=== PATIENT | male | born 1990 | race Caucasian/White ===

== ENCOUNTER 2020-07-17 11:58 | Emergency (ER) | payer SELFPAY ==
[2020-07-17 12:05] VITALS: BP 166/71; PULSE 71; RESP 20; TEMP 36.7; O2SAT 100
--- NOTE | 2020-07-17 12:40 | ED.SKABFB ---
HPI - Skin/Abscess/Foreign Bdy General Chief complaint: Skin/Abscess/Foreign Body Stated complaint: rash Source: patient Mode of arrival: ambulatory Limitations: no limitations History of Present Illness HPI narrative: Patient is a 29-year-old male who presents with rash to bilateral hands, arms, ears and face. Patient reports allergy to poison clara and reports that he was cleaning up the yard and moving bushes the past week. He reports increased itching to hands and face. Patient reports he has been treated for same with prednisone in the past. He denies other complaints at this time. He denies significant medical history. MD complaint: rash Related Data Allergies Allergy/AdvReac Type Severity Reaction Status Date / Time codeine Allergy Unknown rash Verified 07/17/20 12:05 prednicarbate Allergy Unknown Skin Verified 07/17/20 12:05 Reaction POISON CLARA Allergy Unknown Rash Uncoded 07/17/20 12:05 Review of Systems Review of Systems: Narrative: CONSTITUTIONAL: Denies fever, chills, or sweats. EYES: Denies visual changes, redness, or discharge. ENT: Denies rhinorrhea, congestion, sore throat, or otalgia. CARDIOVASCULAR: Denies chest pain, palpitations, or edema. RESPIRATORY: Denies cough or dyspnea. GASTROINTESTINAL: Denies abdominal pain, nausea, vomiting, or diarrhea. GENITOURINARY: Denies dysuria or hematuria. SKIN: Reports rash to bilateral upper extremities, ears, face MUSCULOSKELETAL: Denies back pain, joint pain, or myalgia. NEUROLOGIC: Denies headache, numbness, dizziness, or weakness. PSYCHIATRIC: Denies anxiety or depression. [facility] Past Medical History Medical History Tonsillitis Surgical History Surgical History H/O right wrist surgery Hx of tonsillectomy Family History Family History (Updated 07/17/20 @ 12:43 by CHELSEA Mas) Other No significant family history Social History Social History (Updated 07/17/20 @ 12:44 by CHELSEA Mas) Smoking status: Current every day smoker Alcohol intake: current Alcohol use details: Occasional Substance use: never Occupation/Education: occupation Gender identity (if verbalized by the patient): Male Comments At the time of signature, I have reviewed and agree with nursing past medical, surgical, social, and family history unless otherwise noted. Please see nursing chart for further information. There is no relevant family history pertinent to the presenting complaint. Exam Narrative: Exam Narrative: GENERAL: Well-appearing, well-nourished, and in no acute distress. HEAD: Normocephalic, atraumatic. EYES: EOMI. No redness or drainage. ENT: Mucous membranes pink and moist. CHEST: No respiratory distress. HEART: Regular rate and rhythm. EXTREMITIES: Normal range of motion. No edema. SKIN: Pruritic,urticarial rash to bilateral hands, arms, bilateral ears and right cheek. NEURO: No focal deficits. Alert and oriented x3. Gait steady. PSYCH: Normal affect. No signs of depression or anxiety. Course Course Emergency Course: [facility] did not have original prescription available. Prescription recalled at this time of prednisone 50 mg taper pack. Vital Signs Vital signs: Vital Signs Temperature 36.7 C 07/17/20 12:05 Pulse Rate 71 07/17/20 12:05 Respiratory Rate 20 07/17/20 12:05 Blood Pressure 166/71 H 07/17/20 12:05 Pulse Oximetry 100 07/17/20 12:05 Temperature 36.7 C 07/17/20 12:05 Pulse Rate 71 07/17/20 12:05 Respiratory Rate 20 07/17/20 12:05 Blood Pressure 166/71 H 07/17/20 12:05 Pulse Oximetry 100 07/17/20 12:05 Reviewed. Patient has been instructed to follow-up with his PCP regarding his blood pressure. MDM - Skin/Abscess/Foreign Bdy MDM Narrative Medical decision making narrative: Patient most likely has contact dermatitis. Patient has a history of poison clara in
== END 2020-07-17 12:43 | disposition home or self-care (01) ==
PROVIDERS: Emergency Provider Nurse Practitioner; PCP Family Medicine
DX: L25.5 Unspecified contact dermatitis due to plants, except food (principal); F17.200 Nicotine dependence, unspecified, uncomplicated
CPT/HCPCS: 99213; G0463

== ENCOUNTER 2024-01-23 14:14 | Outpatient (CLI) | payer OTHER, SELFPAY ==
--- NOTE | ~2024-01-23 | MR_ITS ---
EXAMINATION: MR thoracic spine wo con DATE: 01/23/2024 15:01 INDICATION: Chronic midline thoracic back pain. TECHNIQUE: Magnetic resonance imaging (MRI) of the thoracic spine was performed without intravenous c ontrast. COMPARISON: None FINDINGS: There is 6 degrees levocurvature of upper thoracic spine. There are Schmorl's nodes at a fe w levels. There is mildly decreased disc height at T7-T8. At T5-T6, there is a left central protrusio n with mild central canal stenosis. At T8-T9, there is a right central extrusion with mild central ca nal stenosis. There is multilevel mild facet joint osteoarthritis. No neural foraminal stenosis. The spinal cord signal intensity is normal. IMPRESSION: 1. Mild thoracic spondylosis. Reviewed, dictated and finalized at location A.
== END 2024-01-23 14:15 | disposition home or self-care (01) ==
PROVIDERS: PCP Nurse Practitioner Family; Visit Provider Nurse Practitioner Family
DX: R20.0 Anesthesia of skin (principal); G89.29 Other chronic pain; R20.2 Paresthesia of skin; M47.894 Other spondylosis, thoracic region
CPT/HCPCS: 72146

== ENCOUNTER 2024-11-16 15:56 | Emergency (ER) | payer OTHER, SELFPAY ==
--- OUTSIDE RECORDS SUMMARY | 2024-11-16 15:58 | XMS_ITS | Continuity of Care Document ---
Author Name [facility] Organization [facility] Care Team Providers Care Parking Enforcement Officer Name Role Phone [facility] Unavailable Unavailable Problems Combined list of problems from Department of Defense and Veterans Affairs facilities. It does not include entries that were removed or entered in error. 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 DoD visit for: screening exam cardiovascular disorders Inactive Condition DoD Need For Vaccination MMR Inactive Condition DoD Need For Vaccination Hepatitis A And Hepatitis B Inactive Condition DoD visit for: services physical Active Condition DoD visit for: screening exam pulmonary tuberculosis Inactive Condition DoD Vaccines Prophylactic Need Against Influenza Inactive Condition DoD Vaccines Prophylactic Need Against Viral Diseases Inactive Condition DoD visit for: services physical accession Active Condition DoD visit: ears/hearing exam for hearing conservation, treatment Inactive Condition DoD Allergies, Adverse Reactions, Alerts Combined list of allergies from Department of Defense and Veterans Affairs facilities. It does not include entries that were removed or entered in error. Substance Category Reaction Severity Reaction type Status Date Reported Comments Source acetaminop hen-codein e Propensity to adverse reactions to drug Urticaria Active 6 Unknown Organizatio n TYLENOL-CO DEINE #3 (ACETAMINO PHEN WITH CODEINE) Drug allergy (disorder) Urticaria active 6 [place], [place] Immunizations Combined list of available immunizations from the Department of Defense and Veterans Affairs facilities. Immunization Series Date Given Administered By Site Reaction Lot Number CVX Code Drug Media Operator Status Comments Source influenza, injectable, quadrivalent- pf 2022 [id number] 150 Seqirus complet ed influenza , injectabl e, quadrival ent-pf 04/14/23 Given Ambulat ory Pharmac y yellow fever vaccine 2021 [id number] [facility] yellow fever vaccine 01/21/22 Given Ambulat ory Pharmac y typhoid Vi capsular polysaccharid e vac 2021 [id number] GlaxoSmithKl ne complet ed typhoid Vi capsular polysacch aride vac 01/21/22 Given Ambulat ory Pharmac y influenza virus vaccine, inactivated 2021 [id number] Seqirus complet ed influenza virus vaccine, inactivat ed 01/21/22 Given Ambulat ory Pharmac y COVID Vaccine Pfizer 2021 [id number] Unknown complet ed COVID Vaccine Pfizer 06/19/21 Given Ambulat ory Pharmac y COVID Vaccine Pfizer 2020 [id number] Unknown complet ed COVID Vaccine Pfizer 04/25/21 Given Ambulat ory Pharmac y influenza, injectable, quadrivalent- pf 2020 [id number] 150 Unknown complet ed influenza , injectabl e, quadrival ent-pf 03/19/21 Given Ambulat ory Pharmac y influenza, seasonal, injectable-pf 2015 [id number] 140 [facility] complet ed influenza , seasonal, injectabl e-pf 03/29/16 Given Ambulat ory Pharmac y Influenza, seasonal, injectable, preservative free 1 2015 [id number] 140 [facility] (SKB) complet ed Influenza , seasonal, injectabl e, preservat benjamin free DoD anthrax vaccine 2014 Magy [place] Arm [id number] 24 [employer] complet ed anthrax vaccine 08/18/14 Given Ambulat ory Pharmac y anthrax vaccine 3 2014 ESTUARDO HARRY [id number] 24 [employer] Sanju (MIP) complet ed anthrax vaccine DoD anthrax vaccine 2014 [id number] 24 [employer] complet ed anthrax vaccine 08/17/14 Given Ambulat ory Pharmac y anthrax vaccine 3 2014 [id number] 24 [employer] Sanju (MIP) complet ed anthrax vaccine DoD anthrax vaccine 2013 [id number] 24 [employer] complet ed anthrax vaccine 03/11/14 Given Ambulat ory Pharmac y anthrax vaccine 2 2013 [id number] 24 [employer] [facility] ([facility]) complet ed anthrax vaccine DoD influenza, seasonal, injectable-pf 2013 [id number] 140 CSL Behring complet ed influenza , seasonal, injectabl e-pf 01/29/14 Given Ambulat ory Pharmac y Influenza, seasonal, injectable, preservative free 1 2013 [id number] 140 [employer]st [employer] (CSL) complet ed Influenza , seasonal, injectabl e, preservat benjamin free DoD typhoid Vi capsular polysaccharid e vac 2013 [id number] 101 Lo[employer]. complet ed typhoid Vi capsular polysacch aride vac 01/09/14 Given Ambulat ory Pharmac y vaccinia (smallpox) vaccine 2013 [id number] [id number] 75 Sanofi Pasteur Incorporated complet ed vaccinia (smallpox ) vaccine 01/09/14 Given Ambulat ory Pharmac y pneumococcal polysaccharid e, 23 valent 2013 [id number] 33 Merck & Company Inc complet ed pneumococ hesham polysacch aride, 23 valent 01/09/14 Given Ambulat ory Pharmac y anthrax vaccine 2013 [id number] 24 [employer] complet ed anthrax vaccine 01/09/14 Given Ambulat ory Pharmac y anthrax vaccine 1 2013 [id number] 24 [facility] ([facility]) complet ed anthrax vaccine DoD pneumococcal polysaccharid e vaccine, 23 valent 1 2013 [id number] 33 Merck (MSD) complet ed pneumococ hesham polysacch aride vaccine, 23 valent DoD vaccinia (smallpox) vaccine 1 2013 VV04-00 [id number] 75 (DEBBY) complet ed vaccinia (smallpox ) vaccine DoD typhoid Vi capsular polysaccharid e vaccine 1 2013 [id number] 101 Ankur (AD) complet ed typhoid Vi capsular polysacch aride vaccine DoD hepatitis A-hepatitis B vaccine 2013 [id number] 104 Unknown complet ed hepatitis A-hepatit is B vaccine 09/18/13 Given Ambulat ory Pharmac y hepatitis A and hepatitis B vaccine 3 2013 [id number] 104 Unknown (UNK) complet ed hepatitis A and hepatitis B vaccine DoD hepatitis A-hepatitis B vaccine 2012 [id number] 104 GlaxoSmithKli ne complet ed hepatitis A-hepatit is B vaccine 03/27/13 Given Ambulat ory Pharmac y measles/mumps /rubella virus vaccine 2012 [id number] 03 Merck & Company Inc complet ed measles/m umps/rube lla virus vaccine 03/27/13 Given Ambulat ory Pharmac y measles, mumps and rubella virus vaccine 2 2012 [id number] 03 Merck (MSD) complet ed measles, mumps and rubella virus vaccine DoD hepatitis A and hepatitis B vaccine 2 2012 [id number] 104 SmithKline (SKB) complet ed hepatitis A and hepatitis B vaccine DoD hepatitis A-hepatitis B vaccine 2012 [id number] 104 GlaxoSmithKli ne complet ed hepatitis A-hepatit is B vaccine 02/18/13 Given Ambulat ory Pharmac y measles/mumps /rubella virus vaccine 2012 [id number] 03 Merck & Company Inc complet ed measles/m umps/rube lla virus vaccine 02/18/13 Given Ambulat ory Pharmac y measles, mumps and rubella virus vaccine 1 2012 [id number] 03 Merck (MSD) complet ed measles, mumps and rubella virus vaccine DoD varicella virus vaccine 1 2012 UNK 21 Unknown (UNK) Not Given varicella virus vaccine DoD hepatitis A and hepatitis B vaccine 1 2012 [id number] 104 [employer]Kline (SKB) complet ed hepatitis A and hepatitis B vaccine DoD influenza, live, intranasal,qu adrivalent 2012 [id number] 149 CSL Behring complet ed influenza , live, intranasa l,quadriv alent 02/14/13 Given Ambulat ory Pharmac y adenovirus vaccine, live 2012 [id number] 5 143 Teva Pharmaceutica ls complet ed adenoviru s vaccine, live 02/14/13 Given Ambulat ory Pharmac y Adenovirus, type 4 and type 7, live, oral 1 2012 [id number] 5 143 [facility] ([facility]) complet ed Adenoviru s, type 4 and type 7, live, oral DoD influenza, live, intranasal, quadrivalent 1 2012 [id number] 149 CSL [employer] (CSL) complet ed influenza , live, intranasa l, quadrival ent DoD tetanus, diphtheria, acellular pertu is 2012 [id number] 115 sanofi pasteur complet ed tetanus, diphtheri a, acellular pertussis 02/12/13 Given Ambulat ory Pharmac y tuberculin purified protein derivative 2012 [id number] 96 GlaxoSmithKli ne complet ed tuberculi n purified protein derivativ e 02/12/13 Given Ambulat ory Pharmac y meningococcal A,C,Y,W-135 (MCV4P) 2012 [id number] 114 GlaxoSmithKli ne complet ed meningoco ccal A,C,Y,W-1 35 (MCV4P) 02/12/13 Given Ambulat ory Pharmac y poliovirus vaccine, inactivated 2012 [id number] 10 sanofi pasteur complet ed polioviru s vaccine, inactivat ed 02/12/13 Given Ambulat ory Pharmac y poliovirus vaccine, inactivated 1 2012 [id number] 10 Sanofi Pasteur (PMC) complet ed polioviru s vaccine, inactivat ed DoD meningococcal polysaccharid e (groups A, C, Y and W-135) diphtheria toxoid conjugate vaccine (MCV4P) 1 2012 [id number] 114 [facility] (SKB) complet ed meningoco ccal polysacch aride (groups A, C, Y and W-135) diphtheri a toxoid conjugate vaccine (MCV4P) DoD tetanus toxoid, reduced diphtheria toxoid, and acellular pertu is vaccine, adsorbed 1 2012 [id number] 115 Sanofi Pasteur (PMC) complet ed tetanus toxoid, reduced diphtheri a toxoid, and acellular pertussis vaccine, adsorbed DoD Vital Signs Combined list of inpatient and outpatient Vital Signs from Department of Defense and Veterans Affairs, ranging from 12 months to all on record, depending upon the facility. Vital Sign Value Date Comments Source Systolic Blood Pressure 117 mm[Hg] 10/22/2023 00:16:00 0064A-[place] Diastolic Blood Pressure 70 mm[Hg] 10/22/2023 00:16:00 Marcelino4A-KEVIN [place] Respiratory Rate 16 br/min 10/22/2023 00:16:00 AMANDA [place] Temperature Oral 37.1 Priti 10/22/2023 00:16:00 AM[place]DA [place] Heart Rate Monitored 67 bpm 10/22/2023 00:16:00 AMANDA [place] Encounters Combined list of: 1) Encounters from Department of Veterans Affairs facilities going backup to the last 18 months, not all VA inpatient encounters are included; 2) Encounters from the Department of [facility] facilities going backup to 280 months. Location Location Details Encounter Type Encounter Number Reason For Visit Attending Provider ADM Date DC Date Status Disposition Source [place] OUTPATIENT [id number] Notes Entered by: SUSY GONZALEZ 13 Feb 2013 0921 ------- ------- ------- ------- -- Hearing Test JONATHON GONZALEZ 02/13 Released [place]/o Limitations [place] [place] [facility] [place] OUT[place] [id number] ARMAAN ROWLAND 02/14 [place] Limitations [place] [facility] [place] [id number] Notes Entered by: MEGAN WADE RA 18 Feb 2013 0925 ------- ------- ------- ------- -- ABISAI HENDRIX 02/18 [place]itations [place] OUTPATIENT [id number] Notes Entered by: CONNIE WAGGONER 18 Mar 2013 1101 ------- ------- ------- ------- -- Dewey Lizama PART ONE CONNIE WAGGONER 03/18 [place]ased [place]/o Limitations [place] OUTPATIENT [id number] Notes Entered by: LINDSAY TROY 27 Mar 2013 0912 ------- ------- ------- ------- -- IMM-TWI Keaton/JOSE BURROUGHS 03/27 Released w/o Limitations [place] OUTPATIENT [id number] Notes Entered by: CONNIE WAGGONER 15 Apr 2013 1228 ------- ------- ------- ------- -- ECG YANY COX 04/15 Released w/o Limitations [place] OUTPATIENT [id number] Notes Entered by: ECTOR BOYKIN 04 Jun 2013 0939 ------- ------- ------- ------- -- PHYSICA L SF part 2 ALFRED BHATT 06/04 Released w/o Limitations [place]) TELE CONSULT [id number] Notes Entered by: AMANDA MORELOS 04 Aug 2013 0739 ------- ------- ------- ------- -- Syncopa l event, knee pain AMANDA MORELOS 08/04 [place]) [place] [id number] Notes Entered by: YAMILEX WARD 04 Aug 2013 0949 ------- ------- ------- ------- -- walk in knee brace MARIA DEL CARMEN NULL 08/04 [place] Limitations [place] TELE CONSULT [id number] Notes Entered by: AMANDA MORELOS 18 Aug 2013 0745 ------- ------- ------- ------- -- Knee pain AMANDA MORELOS 08/18 [place] [id number] JHON CALDERON 10/06 [place] Limitations [place] OUT[place] [id number] Notes Entered by: JAIMIE AGUILAR 06 Oct 2013 0648 ------- ------- ------- ------- -- F/U FROM RAMSES VALDES 10/06 Released with Work/Duty Limitations [place] [id number] CLEM BLOUNT 10/16 [place]itations [place] [id number] Notes Entered by: JAIMIE AGIULAR 20 Oct 2013 0650 ------- ------- ------- ------- -- F/U FROM MURALI FOR POISON RAMSES ZAMAN 10/20 [place]/o Limitations [place] [place] OUT[place] [id number] Notes Entered by: Shonda IZAGUIRRE 10 Dec 2013 1505 ------- ------- ------- ------- -- A YARI IZAGUIRRE Raul 12/10 [place] Limitations [place] [place] [facility] [employer] OUTPATIENT [id number] Notes Entered by: TRUPTI WATERS 09 Jan 2014 1552 ------- ------- ------- ------- -- SRP MJ WATERS 01/09 [place] w/o Limitations [place] [employer] KEVIN CARCAMO( [facility] [place]) OUTPATIENT [id number] Notes Entered by: LAZARA MARMOLEJO 29 Apr 2014 1243 ------- ------- ------- ------- -- Hearing ANNIA MOSS 04/29 Released w/o Limitations KEVIN BIANCHI(Hea ring Program [place] ) KEVIN CARCAMO( [facility] [place]) TELE CONSULT [id number] Notes Entered by: Dave AUGUSTIN 31 Jul 2014 1108 ------- ------- ------- ------- -- [employer] EDEL Mujica 07/31 KEVIN BIANCHI(Aft er Hours Clinic [place] ) KEVIN CARCAMO( Immunizat ions [place]) OUTPATIENT [id number] Notes Entered by: JAYASHREE HARRY 18 Aug 2014 1654 ------- ------- ------- ------- -- EDEL Garcia 08/18 Released w/o Limitations [facility]EVIN LEIGH [facility] [place] ) [place] Hearing Conservat ion) OUTPATIENT [id number] Notes Entered by: ARTIE CID 15 Oct 2014 1224 ------- ------- ------- ------- -- POST HERNANDEZ POSADA 10/15 Released w/o Limitations [place] Hearing [facility]ion) [place] [address]) OUTPATIENT [id number] Notes Entered by: TEJAL SOSA 15 Oct 2014 1314 ------- ------- ------- ------- -- RSADA-DONA Rodriguez 10/15 [place]ased w/o Limitations [place] [place] [address] [place]IENT [id number] SICK CALL: BACK PAIN EDEL KELLEY 01/19 [place] Limitations [place] TELE CONSULT [id number] Notes Entered by: STACIE MANUEL 23 Feb 2015 1111 ------- ------- ------- ------- -- EDEL Singer 02/23 [place] TELE CONSULT [id number] Notes Entered by: SHALONDA ARSHAD 04 Mar 2015 1338 ------- ------- ------- ------- -- Physica shonda therapy /ortho referEDEL Johnson 03/04 [place]) [place] [id number] 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] bone of right wrist CORTNEY BOUDREAUX I 03/10 Rele[place] with Work/Duty Limitations [place]) [place] [id number] Encount er for other orthope dic afterca re BETSY BALES A 03/12 [place]LE CONS[place] [id number] Notes Entered by: KEVIN CARLSON 22 Mar 2015 1331 ------- ------- ------- ------- -- Request refill on Hydroco done/ac etemino phen r wrist and l knee CORTNEY BOUDREAUX I 03/22 [place]LE CONS[place] [id number] Notes Entered by: CORTNEY LEWIS RD 24 Mar 2015 0741 ------- ------- ------- ------- -- Tempora ry profile CORTNEY BOUDREAUX I 03/24 [place]) [place] [id number] re eval finger motion AMAIRANI BETSY A 03/29 [place] TELE CONSULT [id number] Notes Entered by: KEVYN SAUER DO 06 Apr 2015 1244 ------- ------- ------- ------- -- NETWORK RESULTS -[facility] REFERRA L REQUEST EDEL KELLEY Shonda 04/06 [place] [place]) [place] [id number] ftr BETSY BALES 04/16 [place]) [place] [id number] BETSY BALES 04/22 [place] [id number] re BETSY Sosa 05/11 [place]) [place] [id number] proc BILL GONZALEZAR V 05/14 [place]LE CONS[place] [id number] Notes Entered by: CORTNEY LEWIS RD 18 May 2015 1538 ------- ------- ------- ------- -- profile update CORTNEY BOUDREAUX I 05/18 [place]LE CONS[place] [id number] Notes Entered by: CORTNEY LEWIS RD 26 May 2015 1321 ------- ------- ------- ------- -- profile update CORTNEY BOUDREAUX I 05/26 [place]) [place] [id number] ftr LUIS GONZALEZ V 06/01 [place]) [place] [id number] proc KEITH RANDALL TRENTON 06/07 [place]) [place] [id number] proc KEITH RANDALL [place]ON 06/09 [place] [id number] proc CHICA SMITH 06/14 [place]) [place] [id number] proc KEITH RANDALL TR[place]ON 06/16 [place]) [place] [id number] ftr WANG COLLAZO 06/28 [place] TELE CONSULT [id number] Notes Entered by: Keaton CLIFTON 29 Jun 2015 1445 ------- ------- ------- ------- -- NETWORK RESULTS -ORTHOP DARRELL RODRIGUEZ 06/29 [place] [id number] proc KEITH RANDALL TR[place]ON 07/06 [place]) [place] [id number] proc JORGEANT MENARDNA TR[place]ON 07/11 [place]) [place] [id number] proc JORGEANT MENARDNA TR[place]ON 07/13 [place] [id number] proc WANG COLLAZO 07/18 [place]) [place] [id number] proc KEITH RANDALL TRENTON 07/20 [place]ased [place]) [place] [id number] ftr WANG COLLAZO 09/09 [place]ased [place]itations [place] [id number] proc KEITH RANDALL TRENTON 09/13 [place]) [place] [id number] proc GIOVANNI JUARES 09/16 [place]PAT[place] [id number] S/HEARI STANISLAV OLIVEROS 09/16 [place]ased [place]o Limitations [place] [facility] [place] TELE CONSULT [id number] Notes Entered by: MORENO GIPSON 09 Nov 2015 1248 ------- ------- ------- ------- -- Appoint EDEL Solomon 11/08 [place] [place] [place] [id number] MEB concern s EDEL KELLEY 12/13 [place] [place]) [place] [id number] kendrick COLLAZOWANG ASHELY 12/14 [place] [place] TELE CONSULT [id number] Notes Entered by: STACIE MANUEL 15 Dec 2015 1311 ------- ------- ------- ------- -- MEB Request EDEL KELLEY 12/14 [place] TELE CONSULT [id number] Notes Entered by: STACIE MANUEL 17 Dec 2015 0835 ------- ------- ------- ------- -- MEB Consult EDEL KELLEY 12/16 [place] [place] TELE CONSULT [id number] Notes Entered by: Ariana KHAN 17 Dec 2015 0953 ------- ------- ------- ------- -- MEB process EDEL KELLEY Shonda 12/16 [place] [place] [id number] Pain in right wrist/N ARSUM PER JACQUELINE /KYRIE CLARKE 01/20 Released with Work/Duty Limitations [place] 01BCORABM M) TELE CONSULT [id number] Notes Entered by: Karen MILLER 14 Apr 2016 1453 ------- ------- ------- ------- -- MEDICAT ION REFILL EDEL KELLEY Shonda 04/14 [place] 01BCORA BMM) [facility] Outpatient Encounter [id number] 2 08/30 [facility] Procedures Combined list of: 1) Procedures from Department of [facility] Affairs facilities going back up to thelast 18 months, not all CT non-surgical procedures are included; 2) All procedures from the Department of Defense facilities. Procedure Procedure Type Code Date Perfomer Comments Sourc e No data available for this section Ambulato ry Pharmacy BLOOD, OCCULT, BY PEROXIDASE ACTIVITY (EG, GUAIAC), QUALITATIVE, FECES, 1-3 SIMULT DETERM, PERF FOR OTH THAN COLOREC NEOPLASM SCREEN 014 [facility] ELECTROCARDIOGRAM , ROUTINE ECG WITH AT LEAST 12 LEADS; WITH INTERPRETATION AND REPORT [facility] HEPATITIS A AND HEPATITIS B VACCINE (HEPA-HEPB), ADULT DOSAGE, FOR INTRAMUSCULAR USE 013 [facility] INJECTION, PENICILLIN G BENZATHINE, 100,[address] [facility] VIS FUNCT SCREEN,AUTOMAT/SE UT-AUTOMAT BILAT QUANT DETERM VISUAL ACUITY,OCULAR ALIGN,COLOR VISION,PSEUDOISOC HROMAT PLATES,& FIELD VIS (MAY INC ALL/SOME SCRN DETERM FOR CONTRAST SENSITIV,VIS UND GLARE) [facility] PHYS/OTH QUALIFIED HEALTH CEMENT BASED MATERIALS PUMP TENDER QUALIFIED,EDUCATI ON,TRAIN,LICENSUR E/REGULATION (WHEN APPLICABLE) EDUC SER RENDERED TO PATS IN A GRP SETTING (EG,,OBES ITY,OR DIABETIC INSTRUCT) 013 [facility] OCCUPATIONAL THERAPY RE-EVALUATION [facility] EAR MOLD/INSERT, NOT DISPOSABLE, ANY TYPE [facility] APPLICATION OF A MODALITY TO 1 OR MORE AREAS; [place]IRL[place] 016 DoD APPLICATION OF A MODALITY TO 1 OR MORE AREAS; [place]IRLPOOL 016 [facility] OCCUPATIONAL THERAPY RE-EVALUATION 016 DoD APPLICATION OF A MODALITY TO 1 OR MORE AREAS; HOT OR COLD PACKS 016 DoD APPLICATION OF A MODALITY TO 1 OR MORE AREAS; HOT OR COLD PACKS 016 DoD APPLICATION OF A MODALITY TO 1 OR MORE AREAS; HOT OR COLD PACKS 016 DoD APPLICATION OF A MODALITY TO 1 OR MORE AREAS; HOT OR COLD PACKS 016 DoD APPLICATION OF A MODALITY TO 1 OR MORE AREAS; HOT OR COLD PACKS 016 [facility] OCCUPATIONAL THERAPY RE-EVALUATION 016 DoD APPLICATION OF A MODALITY TO 1 OR MORE AREAS; HOT OR COLD PACKS 016 DoD APPLICATION OF A MODALITY TO 1 OR MORE AREAS; HOT OR COLD PACKS 016 DoD APPLICATION OF A MODALITY TO 1 OR MORE AREAS; HOT OR COLD PACKS 016 DoD APPLICATION OF A MODALITY TO 1 OR MORE AREAS; HOT OR COLD PACKS 016 [facility] OCCUPATIONAL THERAPY RE-EVALUATION [facility] DURABLE MEDICAL EQUIPMENT, MISCELLANEOUS [facility] WRIST HAND ORTHOSIS, INCLUDES ONE OR MORE NONTORSION JOINTS, ELASTIC BANDS, TURNBUCKLES, MAY INCLUDE SOFT INTERFACE, STRAPS, CUSTOM FABRICATED, INCLUDES FITTING AND ADJUSTMENT [facility] DURABLE MEDICAL EQUIPMENT, MISCELLANEOUS [facility] OCCUPATIONAL THERAPY RE-EVALUATION [facility] EXERCISE EQUIPMENT [facility] WRIST HAND ORTHOSIS, WITHOUT JOINTS, MAY INCLUDE SOFT INTERFACE, STRAPS, CUSTOM FABRICATED, INCLUDES FITTING AND ADJUSTMENT [facility] INJECTION, HYDROMORPHONE, UP TO 4 MG 10/10/[address] [facility] AUDIOMETRIC TESTING OF GROUPS [facility] UNLISTED VACCINE/TOXOID [facility] AUDIOMETRIC TESTING OF GROUPS [facility] INJECTION, DEXAMETHASONE SODIUM PHOSPHATE, [address] [facility] KNEE ORTHOSIS, ELASTIC WITH JOINTS, PREFABRICATED ITEM THAT HAS BEEN TRIMMED, BENT, MOLDED, ASSEMBLED, OR OTHERWISE CUSTOMIZED TO FIT A SPECIFIC PATIENT BY AN INDIVIDUAL WITH EXPERTISE [facility] COLLECTION OF VENOUS BLOOD BY VENIPUNCTURE [facility] IMMUNIZATION ADMINISTRATION (INCLUDES PERCUTANEOUS, INTRADERMAL, SUBCUTANEOUS, OR INTRAMUSCULAR INJECTIONS); 1 VACCINE (SINGLE OR COMBINATION VACCINE/TOXOID) [facility] PURE TONE AUDIOMETRY (THRESHOLD); AIR ONLY [facility] Occupational Therapy Re-Evaluation Occupational Therapy Re-Evaluation [address] [facility] Ear Protector Attenuation Measurements Ear Protector Attenuation Measurements [address] [facility] Ear mold/insert, not disposable, any type STANISLAV HERNANDEZ [facility] Audiometry Group Testing Audiometry Group Testing [address] [facility] Modalities Vasopneumatic Device Modalities Vasopneumatic Device 92937 GIOVANNI JUARES [facility] Exercises A isted Exercises For ROM Exercises Assisted [place]ercises For ROM 00561 016 KALIEGIOVANNI LLOYD [facility] Modalities Whirlpool Treatment Modalities Whirlpool Treatment 59926 016 KALIEGIOVANNI LLOYD [facility] Modalities Whirlpool Treatment Modalities Whirlpool Treatment [address] [facility] Exercises A isted Exercises For ROM Exercises [place] [address] [facility] Occupational Therapy Re-Evaluation Occupational Therapy Re-Evaluation [address] [facility] Modalities Heat Hot Packs Modalities Heat Hot Packs [address] [facility] Exercises A isted Exercises For [place] [address] 016 IMERMAN, KEITH TRENTON DoD Exercises A isted Exercises For ROM [place] 82739 016 WANG COLLAZO DoD Modalities Heat Hot Packs Modalities Heat Hot Packs 19788 016 WANG COLLAZO DoD Exercises A isted Exercises For ROM Exercises [place] 46937 016 IMERMAN, KEITH TRENTON DoD Modalities Heat Hot Packs Modalities Heat Hot Packs 96769 016 IMERMAN, KEITH TRENTON DoD Modalities Heat Hot Packs Modalities Heat Hot Packs 32986 016 IMERMAN, KEITH TRENTON DoD Exercises A isted Exercises For [place] 77007 016 IMERMAN, KEITH TRENTON DoD Modalities Heat Hot Packs Modalities Heat Hot Packs 28141 016 IMERMAN, KEITH TRENTON DoD Exercises A isted Exercises For ROM Exercises Assisted [place] 82969 016 IMERMAN, KEITH TRENTON DoD Exercise equipment 016 WANG COLLAZO green putty and blue foam block DoD Occupational Therapy Re-Evaluation Occupational Therapy Re-Evaluation 29876 016 WANG COLLAZO DoD Modalities Heat Hot Packs Modalities Heat Hot Packs 23086 016 IMERMAN, KEITH TRENTON DoD Exercises A isted Exercises For ROM [place]erc[place] 69385 016 IMERMAN, KEITH TRENTON DoD Exercises A isted Exercises For ROM Exercises [place] 43799 016 SARAH, CHICA BENJA DoD Modalities Heat Hot Packs Modalities Heat Hot Packs 61750 016 SARAH, CHICA BENJA DoD Modalities Vasopneumatic Device Modalities Vasopneumatic Device 51679 016 IMERMAN, KEITH TRENTON DoD Modalities Heat Hot Packs Modalities Heat Hot Packs 81260 016 IMERMAN, KEITH TRENTON DoD Exercises A isted Exercises For ROM Exercises [place] 26530 016 IMERMAN, KEITH TRENTON DoD Modalities Heat Hot Packs Modalities Heat Hot Packs [address] [facility] Exercises A isted Exercises For ROM Exercises [place] [address] [facility] Occupational Therapy Re-Evaluation Occupational Therapy Re-Evaluation 42990 [address] [facility] Durable medical equipment, miscellaneous [address] [facility] Exercises A isted Exercises For ROM Exerc[place] 497[address] [address] [facility] Modalities Heat Hot Packs Modalities Heat Hot Packs 72244 [address] [facility] Physical Therapy Education Orthotics Training [address] [facility] Wrist-hand orthosis, includes one or more nontorsion joints, elastic bands, turnbuckles, may include soft interface, straps, custom fabricated, includes fitting and adjustment 016 BETSY BALES Occupational Therapy Re-Evaluation Occupational Therapy Re-Evaluation [address] [facility] Durable medical equipment, miscellaneous 015 BETSY BALES Exercise equipment 015 BETSY BALES Occupational Therapy Re-Evaluation Occupational Therapy Re-Evaluation 68555 015 BETSY BALES Occupational Therapy Re-Evaluation Occupational Therapy Re-Evaluation 78794 015 BETSY BALES Exercise equipment 015 BETSY BALES Occupational Therapy Re-Evaluation Occupational Therapy Re-Evaluation [address] [facility] Wrist-hand orthosis, without joints, may include soft interface, straps, custom fabricated, includes fitting and adjustment BETSY BALES [facility] Physical Therapy Education Orthotics Training 015 BETSY BALES Occupational Therapy Evaluation Occupational Therapy Evaluation [address] [facility] Audiometry Group Testing Audiometry Group Testing [address] [facility] Anthrax Vaccine, For Subcutaneous Use Anthrax Vaccine, For Subcutaneous Use 46471 015 ESTUARDO HARRY DoD Vaccines Vaccines [address] [facility] Pneumococcal Polysaccharide Vaccine (Age 2Y+) Pneumococcal Polysaccharide Vaccine (Age 2Y+) [address] [facility] Typhoid Vaccine Vi Capsular Polysaccharide, For Intramus Use Typhoid Vaccine Vi Capsular Polysaccharide, For Intramus Use [address] [facility] Immunization Administration Each Additional Vaccine Immunization Administration Each Additional Vaccine [address] [facility] Immunization Administration One Vaccine Immunization Administration One Vaccine [address] [facility] Venipuncture Venipuncture [address] [facility] Screening Test Of Visual Acuity, Quantitative, Bilateral Screening Test Of Visual Acuity, Quantitative, Bilateral [address] [facility] Audiometry Group Testing Audiometry Group Testing [address] [facility] Physical Therapy Education Orthotics Training Initial 15 Min MARIA DEL CARMEN NULL Patient was properly identified - assessed and applied orthosis - Patient tolerated the procedure without complications. [facility] Knee orthosis, elastic with joints, prefabricated item that has been trimmed, bent, molded, a embled, or otherwise customized to fit a specific patient by an individual with expertise MARIA DEL CARMEN NULL Patient was properly identified - KO, elastic with joints, prefabricated - Patient tolerated the procedure without complications. [facility] Fecal Analysis - Occult Blood From Digital Rectal Exam Fecal Analysis - Occult Blood From Digital Rectal Exam [address] [facility] ECG 12-Lead With Interpretation And Report ECG 12-Lead With Interpretation And Report 34873 YANY LOZANO MARKED SINUS BRADYCARDIA RIGHTWARD AXIS ACCEPTABLE ECG. [facility] Hepatitis A And Hepatitis B (Intramuscular Use) Adult Dosage Hepatitis A And Hepatitis B (Intramuscular Use) Adult Dosage [address] [facility] Immunization Administration One Vaccine Immunization Administration One Vaccine [address] [facility] Vaccines Viral Measles, Mumps and Rubella, Live Vaccines Viral Measles, Mumps and Rubella, Live [address] [facility] Immunization Administration Each Additional Vaccine Immunization Administration Each Additional Vaccine [address] [facility] Immunization Administration Each Additional Vaccine Immunization Administration Each Additional Vaccine [address] Supervised Injection Intramuscular Antibiotic Supervised Injection Intramuscular Antibiotic [address] [facility] Meningococcal Polysacch Diphtheria Toxoid Conjugate Vaccine ABISAI JACKSON Visit for an IM injection of 0.5mL of Meningococcal Vaccine (Menactra). Was given in the Left Deltoid. Patient was observed for 15 min with no adverse reactions.. [facility] Tdap Vaccine Tdap Vaccine 94152 ABISAI JACKSON Visit for an IM injection of 0.5mL of Boostrix (Tetanus and Diphtheria Toxoids and Acellular Pertussis). Was given in the Right Deltoid. Patient was observed for 15 min with no adverse reactions. . [facility] Vaccines Viral Polio, Inactivated (Salk) Vaccines Viral Polio, Inactivated (Salk) 87859 ABISAI JACKSON Visit for an IM injection of 0.5mL of IPOL (Poliovirus Vaccine Inactivated). Was given in the Right Deltoid. Patient was observed for 15 min with no adverse reactions. . [facility] Hepatitis A And Hepatitis B (Intramuscular Use) Adult Dosage Hepatitis A And Hepatitis B (Intramuscular Use) Adult Dosage 60568 ABISAI JACKSON Visit for an IM injection of 1mL of Twinrix (Hepatitis A and B combination). Was given in the Right Deltoid. Patient was observed for 15 min with no adverse reactions. DoD Vaccines Viral Measles, Mumps and Rubella, Live Vaccines Viral Measles, Mumps and Rubella, Live 66895 ABISAI JACKSON Visit for a SQ injection of 0.5mL of MMR (Measles, Mumps, and Rubella). Was given in the Right Tricep. Patient was observed for 15 min with no adverse reactions. [facility] Injection, penicillin g benzathine, 100,000 units ABISAI JACKSON Visit for an IM injection of 1.2 million/units per 2 mL of Bicillin L-A (Penicillin G Benxathine injectable suspension). Was given in the Left upper quadrant, left buttock. Patient was observed for 15 min with no adverse reactions. . [facility] Skin Test Anergy Tuberculin Intradermal Skin Test Anergy Tuberculin Intradermal 01992 ABISAI JACKSON Visit for intradermal tuberculin testing of 0.1mL of Mantoux (Tuberculin Purified Protein Derivative). Was given in the Left forearm, volar surface. Patient was observed for 15 min with no adverse reactions. [facility] Influenza Virus Vaccine Live Intranasal Influenza Virus Vaccine Live Intranasal 52425 ABISAI JACKSON DoD Immunization Admin By Intranasal / Oral Route One Vaccine Immunization Admin By Intranasal / Oral Route One Vaccine 02518 ABISAI JACKSON Flumist: Each sprayer contains a single dose of Flumist; approximately one-half of the contents was administered into each nostril. Patient was observed for 15 min with no adverse reactions. DoD Immunization Admin Intranasal / Oral Each Additional Vaccine Immunization Admin Intranasal / Oral Each Additional Vaccine [address] [facility] Vaccines Adenovirus Type 4 Live, For Oral Use Vaccines Adenovirus Type 4 Live, For Oral Use 82808 ABISAI JACKSON A single vaccine dose adminstered orally. [facility] Vaccines Adenovirus Type 7 Live, For Oral Use Vaccines Adenovirus Type 7 Live, For Oral Use 77115 ABISAI JACKSON A single vaccine dose adminstered orally. [facility] Visual Function Screening Visual Function Screening [address] [facility] -Supervised Group Educational Services -Supervised Group Educational Services 44939 JONATHON GONZALEZ Audiometry Group Testing Audiometry Group Testing [address] [facility] Ear mold/insert, not disposable, any type JONATHON GONZALEZ [facility] Social History Combined list of available smoking, tobacco, and other social history from [facility] and [facility] facilities. Social History Type Response Date Comment Sourc e Sexual Orientation Ambula tory Pharmacy Gender identity Ambulator y Pharmacy Sex Representation Male (finding) Un known Organization This section is an empty soc ial history section. [facility] Assessment and Plan Combined list of future care activities from Department of Defense and Veterans Affairs facilities (e.g., assessment and plan notes, appointments, orders, and referrals). Additional future care activities may be listed in the Plan of Care section. Result Assessment and Plan Date Source Assessment and Plan No data available for this section 11/16/2024 Ambulatory Pharmacy Functional Status Combined list of recent functional and cognitive assessments recorded at [facility] (CT).CT Functional [place] Measurement (FIM) Scale: 1 = Total Assistance (Subject = 0% +), 2 = Maximal Assistance (Subject = 25% +), 3 = Moderate Assistance (Subject = 50% +), 4 = Minimal Assistance (Subject = 75% +), 5 = Supervision, 6 = Modified [place] (Device), 7 = Complete [place] (Timely, Safely). Assessment Date/Time Source Assessment Type Assessment Skill Assessment Score Assessment Details No data available for this section
--- OUTSIDE RECORDS SUMMARY | 2024-11-16 15:58 | XMS_ITS | Referral Summary ---
Author Organization [address] Address [address] [place] [id number] Care Team Providers Care City Recorder Name Role Phone Bhuimka Patel GIANNI Primary Care Provider [phone] Allergies Active Allergy Reactions Criticality Noted Date Comments Acetaminophen-Codeine Urticaria Medium 12/14/2015 Medications predniSONE (DELTASONE) 10 mg tabletIndicatio ns:Poison hunter dermatitis,Acut e left-sided thoracic back pain Take 4 tabs days 1&2, 3 tabs days 3 & 4, 2 tabs days 5 & 6, 1 tab days 7-10. 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 Patient to hold medications/injections for now. Will get updated testosterone level 2-3 weeks after his last injection. Will supplement if necessary/set up with Endo. 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 Discussed gradually decreasing caffeine intake. Iliotibial band syndrome 03/20/2023 Sinus bradycardia 03/20/2023 Vasovagal syncope 03/20/2023 Immunizations Immunization Administration Dates Next Due Adenovirus 02/14/2013 Anthrax 08/18/2014, 5,03/11/2014,01/09 Hep A / Hep B 09/18/2013,03/27/2013,02/18/2013 IPV 02/12/2013 Influenza LAIV (Nasal) 02/14/2013 Influenza, Quadrivalent, Spl it, Preservative Free, Intramuscular 04/14/2023,03/19/2021,02/24/2020,03/04 Influenza, Trivalent, Preser vative Free, Intramuscular 03/29/2016,01/29/2014 Influenza, Unspecified 04/04/2023(Deferr ed: Patient Refused),05/07/2022(Deferred: Patient Refused),01/21/2022 MMR 03/27/2013,02/18/2013 Meningococcal MCV4P (Menactra) 02/12/2013 PPD TEST 02/12/2013 Pneumococcal Polysaccharide PPV23 01/09/2014 Smallpox 01/09/2014 Tdap 03/04/2019,02/12/2013 Typhoid Inactivated 01/21/2022,01/09/2014 Yellow Fever 01/21/2022 Social History Tobacco Use Types Packs/Day Years Used Date Smoking Tobacco: Former Cigarettes Tobacco Cessation:Counseling Given: Not Answered PHQ-2 Answer Date Recorded PHQ-2 Total Score (If total score is 3 or more points, staff should administer the PHQ-9) 0 01/15/2024 Sex and Gender Information Value Date Recorded Sex Assigned at Not on file Legal Sex Male 9:14 AM CDT Gender Identity Not on file Sexual Orientation Not on file Last Filed Vital Signs Vital Sign Reading Time Taken Comments Blood Pressure 118/82 01/15/2024 8:53 AM CDT Pulse 79 01/15/2024 8:53 AM CDT Temperature 36.9 C (98.4 F) 01/15/2024 8:53 AM CDT Respiratory Rate 18 12/03/2023 6:09 PM CDT Oxygen Saturation 97% 01/15/2024 8:53 AM CDT Inhaled Oxygen Concentration - - Weight 101.6 kg (224 lb) 01/15/2024 8:53 AM CDT Height 185.4 cm (6' 0.99) 01/15/2024 8:53 AM CD T Body Mass Index 29.56 01/15/2024 8:53 AM CDT Plan of Treatment Not on file Insurance [facility] Address[facility] [address] [place] [address] [facility] Care Teams City Recorder Relationship Specialty Start Date End Date Bhumika Patel NP [address] [facility] [address] [place] [address] PCP - General Family Medicine 04/04/23 [facility] 04/04/23
--- OUTSIDE RECORDS SUMMARY | 2024-11-16 15:58 | XMS_ITS | Clinical Summary ---
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 Patient to hold medications/injections for now. Will get updated testosterone level 2-3 weeks after his last injection. Will supplement if necessary/set up with Endo. Heart palpitations 04/04/2023 Assessment & Plan (04/04/2023 2:35 PM DIMENSION STONE QUARRY SUPERVISOR): EKG fine in office Symptoms likely r/t [...] 03/04/2019,02/12/2013 Typhoid Inactivated 01/21/2022,01/09/2014 Yellow Fever 01/21/2022 Surgical History Surgery Date Site/Laterality Comments WRIST FRACTURE SURGERY 05/07/2015 - 05/06/2016 Medical History Medical History Date Comments Testosterone deficiency Palpitations Family History Medical History Relation Name Comments Hepatitis Father Alcohol abuse Maternal Grandfather Alcohol abuse Maternal Grandmother Alcohol abuse Paternal Grandfather Alcohol abuse Paternal Grandmother Pancreatic cancer Paternal Grandmother Relation Name Status Comments Father Maternal Grandfather Maternal Grandmother Paternal Grandfather Paternal Grandmother Alive Social History Tobacco Use Types Packs/Day Years [...] on file Sexual Orientation Not on file Obstetrics History Last Filed Vital Signs Vital Sign Reading [...] 01/15/2024 8:53 AM CDT Plan of Treatment Health Maintenance Due Date Last Done Comments Hepatitis C Screening 1992 Regular Well Visit/Exam 18-64 2010 Varicella Vaccines (1 of 2 - 13+ 2-dose series) 03/14/2013 Covid-19 Vaccine ( season) 2024 06/19/2021, 04/25/2021 Influenza Vaccine (Season Ended) 2025 04/14/2023, 01/21/2022, 03/19/2021, Additional history exists Depression Screening 01/14/2025 01/15/2024, 04/04/20 23 DTaP/Tdap/Td Vaccine (3 - Td or Tdap) 03/04/2029 03/04/2019, 02/12/2013 Hepatitis B Screening Completed 09/18/2013 , 03/27/2013, 02/18/2013 Pneumococcal vaccine <65 Aged Out 01/09/2014 No longer eligible based on patient's age to complete this topic HPV Vaccines Aged Out No longer eligi ble based on patient's age to complete this topic Insurance [facility] CHOICE PLUS [facility] Care Teams Product Development Carpenter Relationship Specialty Start Date End Date Bhumika Patel NP [address] [place] [address] PCP - General Family Medicine 04/04/23 [facility] 04/04/23
[2024-11-16 16:09] VITALS: BP 151/90; PULSE 55; RESP 16; TEMP 36.6; O2SAT 100
--- OUTSIDE RECORDS SUMMARY | 2024-11-16 16:34 | XMS_ITS | Clinical Summary ---
Author Organization [address] Address [address] [place] [phone] Care Team Providers Care Electrifier Operator Name Role Phone Bhumika Patel GIANNI Primary Care Provider [phone] Allergies Active Allergy Reactions Criticality Noted Date [...] 04/04/2023 Assessment & Plan (04/04/2023 2:35 PM RETORT UNLOADER): Discussed Testosterone and his Arimidex and Clomid from the clinic he is going to. Patient to hold medications/injections for now. Will get updated testosterone level 2-3 weeks after his last injection. Will supplement if necessary/set up with Endo. Heart palpitations 04/04/2023 Assessment & Plan (04/04/2023 2:35 PM RETORT UNLOADER): EKG fine in office Symptoms likely r/t [...] patient's age to complete this topic Insurance [facility] CHOICE PLUS [facility] Care Teams Electrifier Operator Relationship Specialty Start Date End Date Bhumika Patel NP [address] [place] [address] PCP - General Family Medicine 04/04/23 [facility] 04/04/23
--- OUTSIDE RECORDS SUMMARY | 2024-11-16 16:34 | XMS_ITS | Referral Summary ---
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 Patient to hold medications/injections for now. Will get updated testosterone level 2-3 weeks after his last injection. Will supplement if necessary/set up with Endo. Heart palpitations 04/04/2023 Assessment & Plan (04/04/2023 2:35 PM RENT COLLECTOR): EKG fine in office Symptoms likely r/t [...] Plan of Treatment Not on file Insurance [facility] CHOICE PLUS [facility] Care Teams Furniture Sales Consultant Relationship Specialty Start Date End Date Bhumika Patel NP [address] [facility] [address] [place] [address] PCP - General Family Medicine 04/04/23 [facility] 04/04/23
--- OUTSIDE RECORDS SUMMARY | 2024-11-16 16:34 | XMS_ITS | Continuity of Care Document ---
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 It does not include entries that were removed or entered in error. Problem Status Onset Date Problem Type Date of Resolution Comments Source ASSESS PATIENT CONDITION WORK-RELATED OCCUPATIONAL DISEASE Active [...] for hearing conservation, treatment Inactive Condition DoD No Known Problems Active Condition 0064 A-ACH Amaris Vail Allergies, Adverse Reactions, Alerts Combined list of [...] CODEINE) Drug allergy (disorder) Urticaria active 6 [place], [place] Immunizations Combined list of available immunizations from the Department of Defense and Veterans Affairs facilities. 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 Status Comments Source influenza, injectable, quadrivalent- pf 2022 [id number] 150 Seqirus complet ed influenza , injectabl e, quadrival ent-pf 04/14/23 Given Ambulat ory Pharmac y yellow fever vaccine 2021 [id number] [facility] complet ed yellow fever vaccine 01/21/22 Given Ambulat ory Pharmac y typhoid Vi capsular polysaccharid e vac 2021 [id number] GlaxoSmithKl ne complet ed typhoid Vi capsular polysacch aride vac 01/21/22 Given Ambulat ory Pharmac y influenza virus vaccine, inactivated 2021 [id number] Seqirus complet ed influenza virus vaccine, inactivat ed 01/21/22 Given Ambulat ory Pharmac y COVID Vaccine Pfizer 2021 [id number] Unknown complet ed COVID Vaccine Pfizer 06/19/21 Given Ambulat ory Pharmac y COVID Vaccine Pfizer 2020 [id number] Unknown complet ed COVID Vaccine Pfizer 04/25/21 Given Ambulat ory Pharmac y influenza, injectable, quadrivalent- pf 2020 [id number] 150 Unknown complet ed influenza , injectabl e, quadrival ent-pf 03/19/21 Given Ambulat ory Pharmac y influenza, seasonal, injectable-pf 2015 [id number] 140 [facility] complet ed influenza , seasonal, injectabl e-pf 03/29/16 Given Ambulat ory Pharmac y Influenza, seasonal, injectable, preservative free 1 2015 [id number] 140 [facility] (SKB) complet ed Influenza , seasonal, injectabl e, preservat benjamin free DoD anthrax vaccine 2014 Magy [place] Arm [id number] 24 [employer] complet ed anthrax vaccine 08/18/14 Given Ambulat ory Pharmac y anthrax vaccine 3 2014 ESTUARDO HARRY [id number] 24 [employer] Sanju (MIP) complet ed anthrax vaccine DoD anthrax vaccine 2014 [id number] 24 [employer] complet ed anthrax vaccine 08/17/14 Given Ambulat ory Pharmac y anthrax vaccine 3 2014 [id number] 24 [employer] Sanju (MIP) complet ed anthrax vaccine DoD anthrax vaccine 2013 [id number] 24 [employer] complet ed anthrax vaccine 03/11/14 Given Ambulat ory Pharmac y anthrax vaccine 2 2013 [id number] 24 [employer] [place] ([facility]) complet ed anthrax vaccine DoD influenza, seasonal, injectable-pf 2013 [id number] 140 CSL Behring complet ed influenza , seasonal, injectabl e-pf 01/29/14 Given Ambulat ory Pharmac y Influenza, seasonal, injectable, preservative free 1 2013 [id number] 140 [employer] Super[employer] Inc. (CSL) complet ed Influenza , seasonal, injectabl e, preservat benjamin free DoD typhoid Vi capsular polysaccharid e vac 2013 [id number] 101 Inclinix[employer]. complet ed typhoid Vi capsular polysacch aride vac 01/09/14 Given Ambulat ory Pharmac y vaccinia (smallpox) vaccine 2013 VV04-00 [id number] 75 Sanofi Pasteur Incorporated complet ed vaccinia (smallpox ) vaccine 01/09/14 Given Ambulat ory Pharmac y pneumococcal polysaccharid e, 23 valent 2013 [id number] 33 Merck & Company Inc complet ed pneumococ hesham polysacch aride, 23 valent 01/09/14 Given Ambulat ory Pharmac y anthrax vaccine 2013 [id number] 24 [employer] complet ed anthrax vaccine 01/09/14 Given Ambulat ory Pharmac y anthrax vaccine 1 2013 [id number] 24 [facility] complet ed anthrax vaccine DoD pneumococcal polysaccharid e vaccine, 23 valent 1 2013 [id number] 33 Merck (MSD) complet ed pneumococ hesham polysacch aride vaccine, 23 valent DoD vaccinia (smallpox) vaccine 1 2013 VV04-00 3A 75 (DEBBY) complet ed vaccinia (smallpox ) vaccine DoD typhoid Vi capsular polysaccharid e vaccine 1 2013 [id number] 101 Ankur (AD) complet ed typhoid Vi capsular polysacch aride vaccine DoD hepatitis A-hepatitis B vaccine 2013 [id number] 104 Unknown complet ed hepatitis A-hepatit is B vaccine 09/18/13 Given Ambulat ory Pharmac y hepatitis A and hepatitis B vaccine 3 2013 [id number] [id number] 104 Unknown (UNK) complet ed hepatitis A and hepatitis B vaccine DoD hepatitis A-hepatitis B vaccine 2012 [id number] 104 GlaxoSmithKli ne complet ed hepatitis A-hepatit is B vaccine 03/27/13 Given Ambulat ory Pharmac y measles/mumps /rubella virus vaccine 2012 [id number] 03 Merck & Company Inc complet ed measles/m umps/rube lla virus vaccine 03/27/13 Given Ambulat ory Pharmac y measles, mumps and rubella virus vaccine 2 2012 [id number] 03 Merck (MSD) complet ed measles, mumps and rubella virus vaccine DoD hepatitis A and hepatitis B vaccine 2 2012 [id number] 104 SmithKline (SKB) complet ed hepatitis A and hepatitis B vaccine DoD hepatitis A-hepatitis B vaccine 2012 [id number] 104 GlaxoSmithKli ne complet ed hepatitis A-hepatit is B vaccine 02/18/13 Given Ambulat ory Pharmac y measles/mumps /rubella virus vaccine 2012 [id number] 03 Merck & Company Inc complet ed measles/m umps/rube lla virus vaccine 02/18/13 Given Ambulat ory Pharmac y measles, mumps and rubella virus vaccine 1 2012 [id number] 03 Merck (MSD) complet ed measles, mumps and rubella virus vaccine DoD varicella virus vaccine 1 2012 UNK 21 Unknown (UNK) Not Given varicella virus vaccine DoD hepatitis A and hepatitis B vaccine 1 2012 [id number] 104 SmithKline (SKB) complet ed hepatitis A and hepatitis B vaccine DoD influenza, live, intranasal,qu adrivalent 2012 [id number] 149 CSL Behring complet ed influenza , live, intranasa l,quadriv alent 02/14/13 Given Ambulat ory Pharmac y adenovirus vaccine, live 2012 [id number] 143 Teva Pharmaceutica ls complet ed adenoviru s vaccine, live 02/14/13 Given Ambulat ory Pharmac y Adenovirus, type 4 and type 7, live, oral 1 2012 [id number] 143 [facility] ([facility]) complet ed Adenoviru s, type 4 and type 7, live, oral DoD influenza, live, intranasal, quadrivalent 1 2012 [id number] 149 CSL [employer]otherapies[employer] Inc. (CSL) complet ed influenza , live, intranasa l, quadrival ent DoD tetanus, diphtheria, acellular pertu is 2012 [id number] [id number] 115 sanofi pasteur complet ed tetanus, diphtheri a, acellular pertussis 02/12/13 Given Ambulat ory Pharmac y tuberculin purified protein derivative 2012 [id number] 96 GlaxoSmithKli ne complet ed tuberculi n purified protein derivativ e 02/12/13 Given Ambulat ory Pharmac y meningococcal A,C,Y,W-135 (MCV4P) 2012 [id number] 114 GlaxoSmithKli ne complet ed meningoco ccal A,C,Y,W-1 35 (MCV4P) 02/12/13 Given Ambulat ory Pharmac y poliovirus vaccine, inactivated 2012 [id number] 10 sanofi pasteur complet ed polioviru s vaccine, inactivat ed 02/12/13 Given Ambulat ory Pharmac y poliovirus vaccine, inactivated 1 2012 [id number] 10 Sanofi Pasteur (PMC) complet ed polioviru s vaccine, inactivat ed DoD meningococcal polysaccharid e (groups A, C, Y and W-135) diphtheria toxoid conjugate vaccine (MCV4P) 1 2012 [id number] 114 [facility] (SKB) complet ed meningoco ccal polysacch aride (groups A, C, Y and W-135) diphtheri a toxoid conjugate vaccine (MCV4P) DoD tetanus toxoid, reduced diphtheria toxoid, and acellular pertu is vaccine, adsorbed 1 2012 [id number] 115 Sanofi Pasteur (PMC) complet ed [...] included; 2) Encounters from the Department of [facility] facilities going backup to 280 months. Location Location Details Encounter Type Encounter Number Reason For Visit Attending Provider ADM Date DC Date Status Disposition Source [place] OUTPATIENT [id number] Notes Entered by: SUSY GONZALEZ 13 Feb 2013 0921 ------- ------- ------- ------- -- Hearing Test JONATHON GONZALEZ 02/13 Released [place] Limitations [place] ) [place] [facility] [place] OUT[place] [id number] ARMAAN ROWLAND 02/14 [place] [facility] [id number] Notes Entered by: MEGAN WADE RA 18 Feb 2013 0925 ------- ------- ------- ------- -- ABISAI HENDRIX 02/18 [place]IENT [id number] Notes Entered by: CONNIE WAGGONER 18 Mar 2013 1101 ------- ------- ------- ------- -- Dewey Lizama PART ONE CONNIE WAGGONER 03/18 [place]o Limitations [place] [facility] OUTPATIENT [id number] Notes Entered by: LINDSAY TROY 27 Mar 2013 0912 ------- ------- ------- ------- -- IMM-TWI Keaton/JOSE BURROUGHS 03/27 Released w/o Limitations [place] OUTPATIENT [id number] Notes Entered by: CONNIE WAGGONER 15 Apr 2013 1228 ------- ------- ------- ------- -- ECG YANY COX 04/15 Released w/o Limitations [place] OUTPATIENT [id number] Notes Entered by: ECTOR BOYKIN 04 Jun 2013 0939 ------- ------- ------- ------- -- PHYSICA L SF part 2 ALFRED BHATT 06/04 [place]ased w/o Limitations [place] TELE CONSULT [id number] Notes Entered by: AMANDA MORELOS 04 Aug 2013 0739 ------- ------- ------- ------- -- Syncopa l event, knee pain AMANDA MORELOS 08/04 [place] [id number] Notes Entered by: YAMILEX WARD 04 Aug 2013 0949 ------- ------- ------- ------- -- walk in knee brace MARIA DEL CARMEN UNLL 08/04 [place] TELE CONS[place] [id number] Notes Entered by: AMANDA MORELOS 18 Aug 2013 0745 ------- ------- ------- ------- -- Knee pain AMANDA MORELOS 08/18 [place] [id number] JHON CALDERON 10/06 [place] [id number] Notes Entered by: JAIMIE AGUILAR 06 Oct 2013 0648 ------- ------- ------- ------- -- F/U FROM RAMSES VALDES 10/06 Released with Work/Duty Limitations [place]) [place] [id number] CLEM BLOUNT 10/16 [place] [id number] Notes Entered by: JAIMIE AGUILAR 20 Oct 2013 0650 ------- ------- ------- ------- -- F/U FROM MURALI FOR POISON RAMSES ZAMAN 10/20 [place] [id number] Notes Entered by: Shonda IZAUGIRRE 10 Dec 2013 1505 ------- ------- ------- ------- -- A YARI IZAGUIRRE Raul 12/10 [place] [place] [employer] OUTPATIENT [id number] Notes Entered by: TRUPTI WATERS 09 Jan 2014 1552 ------- ------- ------- ------- -- SRP MJ WATERS 01/09 [place] Limitations [place] [employer] KEVIN CARCAMO( Hearing [facility] [place]) OUTPATIENT [id number] Notes Entered by: LAZARA MARMOLEJO 29 Apr 2014 1243 ------- ------- ------- ------- -- Hearing ANNIA MOSS 04/29 Released w/o Limitations KEVIN BIANCHI(Hea ring Program [place] ) KEVIN CARCAMO( [facility] [place]) TELE CONSULT [id number] Notes Entered by: Dave AUGUSTIN 31 Jul 2014 1108 ------- ------- ------- ------- -- [employer] EDEL Mujica 07/31 KEVIN BIANCHI(Aft er Hours [facility] [place] ) KEVIN CARCAMO( Immunizat ions [place]) OUTPATIENT [id number] Notes Entered by: JAYASHREE HARRY 18 Aug 2014 1654 ------- ------- ------- ------- -- EDEL Garcia 08/18 Released w/o Limitations KEVIN LEIGH [place]K([facility] [place] [place] OUTPATIENT [id number] Notes Entered by: ARTIE CID 15 Oct 2014 1224 ------- ------- ------- ------- -- POST HERNANDEZ POSADA 10/15 [place] Lim[place] [address] OUT[place] [id number] Notes Entered by: TEJAL SOSA 15 Oct 2014 1314 ------- ------- ------- ------- -- RSADA-DONA Rodriguez 10/15 [place] Limitations [place] [place] [address] [place] [id number] SICK CALL: BACK PAIN EDEL KELLEY 01/19 [place] TELE CONSULT [id number] Notes Entered by: STACIE MANUEL 23 Feb 2015 1111 ------- ------- ------- ------- -- EDEL Singer 02/23 [place] TELE CONSULT [id number] Notes Entered by: SHALONDA ARSHAD 04 Mar 2015 1338 ------- ------- ------- ------- -- Physica shonda therapy /ortho referEDEL Johnson 03/04 [place]) [place] [id number] 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] bone of right wrist CORTNEY BOUDREAUX I 03/10 Rele[place] Work/Duty [place]) [place] [id number] Encount er for other orthope dic afterca re BETSY BALES A 03/12 [place]LE CONS[place] [id number] Notes Entered by: KEVIN CARLSON 22 Mar 2015 1331 ------- ------- ------- ------- -- Request refill on Hydroco done/ac etemino phen r wrist and l knee CORTNEY BOUDREAUX I 03/22 [place]LE [place] [id number] Notes Entered by: CORTNEY LEWIS RD 24 Mar 2015 0741 ------- ------- ------- ------- -- Tempora ry profile CORTNEY BOUDREAUX I 03/24 [place]) [place] [id number] re eval finger motion AMAIRANI BETSY A 03/29 [place] TELE CONSULT [id number] Notes Entered by: KEYVN SAUER DO 06 Apr 2015 1244 ------- ------- ------- ------- -- NETWORK RESULTS -[facility] REFERRA L REQUEST EDEL KELLEY Shonda 04/06 [place]) [place] [id number] ftr BETSY BALES 04/16 [place]) [place] [id number] BETSY BALES 04/22 [place] [id number] re BETSY Sosa 05/11 [place]) [place] [id number] proc BILL GONZALEZAR V 05/14 [place]LE [place] [id number] Notes Entered by: CORTNEY LEWIS RD 18 May 2015 1538 ------- ------- ------- ------- -- profile update CORTNEY BOUDREAUX I 05/18 [place]LE [place] [id number] Notes Entered by: CORTNEY LEWIS RD 26 May 2015 1321 ------- ------- ------- ------- -- profile update CORTNEY BOUDREAUX I 05/26 [place]) [place] [id number] ftr LUIS GONZALEZ V 06/01 [place]) [place] [id number] proc KEITH RANDALL TRENTON 06/07 [place]) [place] [id number] proc KEITH RANDALL [place]ON 06/09 [place]ased [place] [id number] proc CHICA SMITH 06/14 [place]) [place] [id number] proc KEITH RANDALL TRENTON 06/16 [place]ased [place] Limitations [place]) [place] [id number] ftr WANG COLLAZO 06/28 [place] TELE CONSULT [id number] Notes Entered by: Keaton CLIFTON 29 Jun 2015 1445 ------- ------- ------- ------- -- NETWORK RESULTS -ORTHOP DARRELL RODRIGUEZ 06/29 [place] [id number] proc KEITH RANDALL TR[place]ON 07/06 [place]) [place] [id number] proc JORGEANT MENARDNA [place] 07/11 [place]ased [place]) [place] [id number] proc JORGEANT MENARDNA TR[place]ON 07/13 [place]ased [place] Lim[place] [id number] proc WANG COLLAZO 07/18 [place]itations [place] [id number] proc KEITH RANDALL TR[place]ON 07/20 [place] [id number] ftr WANG COLLAZO 09/09 [place] [id number] proc KEITH RANDALL TR[place]ON 09/13 [place] Lim[place]) [place] [id number] proc GIOVANNI JUARES 09/16 [place] [id number] S/HEARI STANISLAV OLIVEROS 09/16 [place]ased [place] [facility] TELE CONSULT [id number] Notes Entered by: MORENO GIPSON 09 Nov 2015 1248 ------- ------- ------- ------- -- Appoint EDEL Solomon 11/08 [place] [id number] MEB concern s EDEL KELLEY 12/13 [place] [place]) [place] [id number] kendrick COLLAZOWANG ASHELY 12/14 [place] TELE CONSULT [id number] Notes Entered by: STACIE MANUEL 15 Dec 2015 1311 ------- ------- ------- ------- -- MEB Request EDEL KELLEY 12/14 [place] TELE CONSULT [id number] Notes Entered by: STACIE MANUEL 17 Dec 2015 0835 ------- ------- ------- ------- -- MEB Consult EDEL KELLEY 12/16 [place] TELE CONSULT [id number] Notes Entered by: Ariana KHAN 17 Dec 2015 0953 ------- ------- ------- ------- -- MEB process EDEL KELLEY Shonda 12/16 [place] [id number] Pain in right wrist/N ARSUM PER JACQUELINE /KYRIE CLARKE 01/20 Released with Work/Duty Limitations [place] TELE CONSULT [id number] Notes Entered by: Karen MILLER 14 Apr 2016 1453 ------- ------- ------- ------- -- MEDICAT ION REFILL EDEL KELLEY Shonda 04/14 [place] Outpatient Encounter [id number] 08/30 [facility] Procedures Combined list of: 1) Procedures from Department of [facility] Affairs facilities going back up to thelast 18 months, not all [place] non-surgical procedures are included; 2) All procedures from the Department of Defense facilities. Procedure Procedure Type Code Date Perfomer Comments Sourc e BLOOD, OCCULT, BY PEROXIDASE ACTIVITY (EG, GUAIAC), QUALITATIVE, FECES, 1-3 SIMULT DETERM, PERF FOR OTH THAN COLOREC NEOPLASM SCREEN 014 [facility] ELECTROCARDIOGRAM , ROUTINE ECG WITH AT LEAST 12 LEADS; WITH INTERPRETATION AND REPORT [facility] HEPATITIS A AND HEPATITIS B VACCINE (HEPA-HEPB), ADULT DOSAGE, FOR INTRAMUSCULAR USE [facility] INJECTION, PENICILLIN G BENZATHINE, 100,000 UNITS [facility] VIS FUNCT SCREEN,AUTOMAT/SE TX-AUTOMAT BILAT QUANT DETERM VISUAL ACUITY,OCULAR ALIGN,COLOR VISION,PSEUDOISOC HROMAT PLATES,& FIELD VIS (MAY INC ALL/SOME SCRN DETERM FOR CONTRAST SENSITIV,VIS UND GLARE) [facility] PHYS/OTH QUALIFIED HEALTH 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 QUALIFIED,EDUCATI ON,TRAIN,LICENSUR E/REGULATION (WHEN APPLICABLE) EDUC SER RENDERED TO PATS IN A GRP SETTING (EG,,OBES ITY,OR DIABETIC INSTRUCT) [facility] OCCUPATIONAL THERAPY RE-EVALUATION [facility] EAR MOLD/INSERT, NOT DISPOSABLE, ANY TYPE DoD APPLICATION OF A MODALITY TO 1 OR MORE AREAS; WHIRLPOOL 016 DoD APPLICATION OF A MODALITY TO 1 OR MORE AREAS; IRLPOOL 016 [facility] OCCUPATIONAL THERAPY RE-EVALUATION 016 DoD APPLICATION OF [...] MORE AREAS; HOT OR COLD PACKS 016 [facility] OCCUPATIONAL THERAPY RE-EVALUATION 016 DoD APPLICATION OF [...] MORE AREAS; HOT OR COLD PACKS 016 [facility] OCCUPATIONAL THERAPY RE-EVALUATION [facility] DURABLE MEDICAL EQUIPMENT, MISCELLANEOUS [facility] WRIST HAND ORTHOSIS, INCLUDES ONE OR MORE NONTORSION JOINTS, ELASTIC BANDS, TURNBUCKLES, MAY INCLUDE SOFT INTERFACE, STRAPS, CUSTOM FABRICATED, INCLUDES FITTING AND ADJUSTMENT [facility] DURABLE MEDICAL EQUIPMENT, MISCELLANEOUS [facility] OCCUPATIONAL THERAPY RE-EVALUATION [facility] EXERCISE EQUIPMENT [facility] WRIST HAND ORTHOSIS, WITHOUT JOINTS, MAY INCLUDE SOFT INTERFACE, STRAPS, CUSTOM FABRICATED, INCLUDES FITTING AND ADJUSTMENT [facility] INJECTION, HYDROMORPHONE, UP TO 4 MG [facility] AUDIOMETRIC TESTING OF GROUPS [facility] UNLISTED VACCINE/TOXOID [facility] AUDIOMETRIC TESTING OF GROUPS [facility] INJECTION, DEXAMETHASONE SODIUM PHOSPHATE, 1 MG [facility] KNEE ORTHOSIS, ELASTIC WITH JOINTS, PREFABRICATED ITEM THAT HAS BEEN TRIMMED, BENT, MOLDED, ASSEMBLED, OR OTHERWISE CUSTOMIZED TO FIT A SPECIFIC PATIENT BY AN INDIVIDUAL WITH EXPERTISE [facility] COLLECTION OF VENOUS BLOOD BY VENIPUNCTURE [facility] IMMUNIZATION ADMINISTRATION (INCLUDES PERCUTANEOUS, INTRADERMAL, SUBCUTANEOUS, OR INTRAMUSCULAR INJECTIONS); 1 VACCINE (SINGLE OR COMBINATION VACCINE/TOXOID) [facility] PURE TONE AUDIOMETRY (THRESHOLD); AIR ONLY [facility] Occupational Therapy Re-Evaluation Occupational Therapy Re-Evaluation 68380 WANG COLLAZO [facility] Ear Protector Attenuation Measurements Ear Protector Attenuation Measurements 26060 STANISLAV HERNANDEZ [facility] Ear mold/insert, not disposable, any type STANISLAV HERNANDEZ [facility] Audiometry Group Testing Audiometry Group Testing 68450 016 STANISLAV HERNANDEZ [facility] Modalities Vasopneumatic Device Modalities Vasopneumatic Device 16192 016 [facility] Exercises A isted Exercises For ROM [place] [address] 016 [facility] EMERALD COASTRaul [facility] Modalities Whirlpool Treatment Modalities Whirlpool Treatment 06380 016 [facility] Modalities Whirlpool Treatment Modalities Whirlpool Treatment 59675 016 KEITH RANDALL [facility] Exercises A isted Exercises For ROM [place]ercises [place]isted [place] 38025 016 KEITH RANDALL [facility] Occupational Therapy Re-Evaluation Occupational Therapy Re-Evaluation 85912 016 WANG COLLAZO [facility] Modalities Heat Hot Packs Modalities Heat Hot Packs 72884 016 KEITH RANDALL [facility] Exercises A isted Exercises For ROM Exercises Assisted [place]ercises [place] ROM 12133 016 IMERMAN, KEITH [place] DoD Exercises A isted Exercises For ROM Exercises Assisted [place] ROM 98056 016 WANG COLLAZO DoD Modalities Heat Hot Packs Modalities Heat Hot Packs 12727 016 WANG COLLAZO DoD Exercises A isted Exercises For ROM Exercises Assisted [place]ercises [place] ROM 38439 016 IMERMAN, KEITH TRENTON DoD Modalities Heat Hot Packs Modalities Heat Hot Packs 55981 016 IMERMAN, KEITH [place] DoD Modalities Heat Hot Packs Modalities Heat Hot Packs 58424 016 IMERMAN, KEITH [place] DoD Exercises A isted Exercises For ROM Exercises Assisted [place]ercises [place] ROM 56457 016 IMERMAN, KEITH TRENTON DoD Modalities Heat Hot Packs Modalities Heat Hot Packs 01093 016 IMERMAN, KEITH TRENTON DoD Exercises A isted Exercises For ROM Exercises [place] 97893 016 IMERMAN, KEITH TR[place]ON DoD Exercise equipment 016 WANG COLLAZO green putty and blue foam block DoD Occupational Therapy Re-Evaluation Occupational Therapy Re-Evaluation 68478 016 WANG COLLAZO DoD Modalities Heat Hot Packs Modalities Heat Hot Packs 79471 016 IMERMAN, KEITH TRENTON DoD Exercises A isted Exercises For ROM Exercises Assisted [place]ercises [place] ROM 07296 016 IMERMAN, KEITH TR[place]ON DoD Exercises A isted Exercises For ROM Exercises Assisted [place]ercises [place] ROM 00343 016 SARAH, CHICA BENJA Do[facility] Modalities Heat Hot Packs Modalities Heat Hot Packs 34511 016 SARAH, CHICA BENJA DoD Modalities Vasopneumatic Device Modalities Vasopneumatic Device 72669 016 IMERMAN, KEITH TRENTON DoD Modalities Heat Hot Packs Modalities Heat Hot Packs 91724 016 IMERMAN, KEITH TRENTON DoD Exercises A isted Exercises For ROM Exercises Assisted [place] 36934 016 IMERMAN, KEITH TRENTON DoD Modalities Heat Hot Packs Modalities Heat Hot Packs 80872 016 IMERMAN, KEITH TRENTON DoD Exercises A isted Exercises For ROM Exercises Assisted [place]ercises [place] ROM 71315 016 KEITH RANDALL [facility] Occupational Therapy Re-Evaluation Occupational Therapy Re-Evaluation 97080 016 LUIS GONZALEZ V DoD Durable medical equipment, miscellaneous 016 BILL GONZALEZAR Nancy Amaral Exercises A isted Exercises For ROM Exercises Assisted [place]ises [place] 29426 016 LUIS GONZALEZ V DoD Modalities Heat Hot Packs Modalities Heat Hot Packs 52030 016 LUIS GONZALEZ V DoD Physical Therapy Education Orthotics Training 016 BETSY BALES [facility] Wrist-hand orthosis, includes one or more nontorsion joints, elastic bands, turnbuckles, may include soft interface, straps, custom fabricated, includes fitting and adjustment 016 BETSY BALES Occupational Therapy Re-Evaluation Occupational Therapy Re-Evaluation 21393 016 BETSY BALES Durable medical equipment, miscellaneous 015 BETSY BALES Exercise equipment 015 BETSY BALES Occupational Therapy Re-Evaluation Occupational Therapy Re-Evaluation 40840 015 BETSY BALES Occupational Therapy Re-Evaluation Occupational Therapy Re-Evaluation 92569 015 BETSY BALES Exercise equipment 015 BETSY BALES Occupational Therapy Re-Evaluation Occupational Therapy Re-Evaluation 29145 015 BETSY BALES Wrist-hand orthosis, without joints, may include soft interface, straps, custom fabricated, includes fitting and adjustment BETSY BALES Physical Therapy Education Orthotics Training 015 BETSY BALES Occupational Therapy Evaluation Occupational Therapy Evaluation 50273 BETSY BALES [facility] Audiometry Group Testing Audiometry Group Testing 45911 015 YARI IZAGUIRRE [facility] Anthrax Vaccine, For Subcutaneous Use Anthrax Vaccine, For Subcutaneous Use 27661 015 ESTUARDO HARRY [facility] Vaccines Vaccines 86774 014 MJ WATERS [facility] Pneumococcal Polysaccharide Vaccine (Age 2Y+) Pneumococcal Polysaccharide Vaccine (Age 2Y+) 01307 MJ WATERS [facility] Typhoid Vaccine Vi Capsular Polysaccharide, For Intramus Use Typhoid Vaccine Vi Capsular Polysaccharide, For Intramus Use 99791 MJ WATERS [facility] Immunization Administration Each Additional Vaccine Immunization Administration Each Additional Vaccine 64876 MJ WATERS [facility] Immunization Administration One Vaccine Immunization Administration One Vaccine 96421 MJ WATERS [facility] Venipuncture Venipuncture 10923 JTMJ Shaffer [facility] Screening Test Of Visual Acuity, Quantitative, Bilateral Screening Test Of Visual Acuity, Quantitative, Bilateral 45031 MJ WATERS [facility] Audiometry Group Testing Audiometry Group Testing 85485 LEMEUL CLINE [facility] Physical Therapy Education Orthotics Training Initial 15 Min MARIA DEL CARMEN NULL Patient was properly identified - assessed and applied orthosis - Patient tolerated the procedure without complications. [facility] Knee orthosis, elastic with joints, prefabricated item that has been trimmed, bent, molded, a embled, or otherwise customized to fit a specific patient by an individual with expertise MARIA DEL CARMEN NULL Patient was properly identified - KO, elastic with joints, prefabricated - Patient tolerated the procedure without complications. [facility] Fecal Analysis - Occult Blood From Digital Rectal Exam Fecal Analysis - Occult Blood From Digital Rectal Exam 92567 ALFRED BHATT [facility] ECG 12-Lead With Interpretation And Report ECG 12-Lead With Interpretation And Report 31114 YANY LOZANO MARKED SINUS BRADYCARDIA RIGHTWARD AXIS ACCEPTABLE ECG. [facility] Hepatitis A And Hepatitis B (Intramuscular Use) Adult Dosage Hepatitis A And Hepatitis B (Intramuscular Use) Adult Dosage 88456 LILIAN MUNIZ [facility] Immunization Administration One Vaccine Immunization Administration One Vaccine 63133 LILIAN MUNIZ [facility] Vaccines Viral Measles, Mumps and Rubella, Live Vaccines Viral Measles, Mumps and Rubella, Live 28129 LILIAN MUNIZ [facility] Immunization Administration Each Additional Vaccine Immunization Administration Each Additional Vaccine 79660 MUNIZLILIAN [facility] Immunization Administration Each Additional Vaccine Immunization Administration Each Additional Vaccine [address] Supervised Injection Intramuscular Antibiotic Supervised Injection Intramuscular Antibiotic 88508 ABISAI JACKSON [facility] Meningococcal Polysacch Diphtheria Toxoid Conjugate Vaccine ABISAI JACKSON Visit for an IM injection of 0.5mL of Meningococcal Vaccine (Menactra). Was given in the Left Deltoid. Patient was observed for 15 min with no adverse reactions.. [facility] Tdap Vaccine Tdap Vaccine 00211 ABISAI JACKSON Visit for an IM injection of 0.5mL of Boostrix (Tetanus and Diphtheria Toxoids and Acellular Pertussis). Was given in the Right Deltoid. Patient was observed for 15 min with no adverse reactions. . [facility] Vaccines Viral Polio, Inactivated (Salk) Vaccines Viral Polio, Inactivated (Salk) 34347 ABISAI JACKSON Visit for an IM injection of 0.5mL of IPOL (Poliovirus Vaccine Inactivated). Was given in the Right Deltoid. Patient was observed for 15 min with no adverse reactions. . [facility] Hepatitis A And Hepatitis B (Intramuscular Use) Adult Dosage Hepatitis A And Hepatitis B (Intramuscular Use) Adult Dosage 06302 ABISAI JACKSON Visit for an IM injection of 1mL of Twinrix (Hepatitis A and B combination). Was given in the Right Deltoid. Patient was observed for 15 min with no adverse reactions. DoD Vaccines Viral Measles, Mumps and Rubella, Live Vaccines Viral Measles, Mumps and Rubella, Live 96020 ABISAI JACKSON Visit for a SQ injection of 0.5mL of MMR (Measles, Mumps, and Rubella). Was given in the Right Tricep. Patient was observed for 15 min with no adverse reactions. [facility] Injection, penicillin g benzathine, 100,000 units ABISAI JACKSON Visit for an IM injection of 1.2 million/units per 2 mL of Bicillin L-A (Penicillin G Benxathine injectable suspension). Was given in the Left upper quadrant, left buttock. Patient was observed for 15 min with no adverse reactions. . [facility] Skin Test Anergy Tuberculin Intradermal Skin Test Anergy Tuberculin Intradermal 37325 ABISAI JACKSON Visit for intradermal tuberculin testing of 0.1mL of Mantoux (Tuberculin Purified Protein Derivative). Was given in the Left forearm, volar surface. Patient was observed for 15 min with no adverse reactions. [facility] Influenza Virus Vaccine Live Intranasal Influenza Virus Vaccine Live Intranasal 42250 ABISAI JACKSON DoD Immunization Admin By Intranasal / Oral Route One Vaccine Immunization Admin By Intranasal / Oral Route One Vaccine 38323 ABISAI JACKSON Flumist: Each sprayer contains a single dose of Flumist; approximately one-half of the contents was administered into each nostril. Patient was observed for 15 min with no adverse reactions. [facility] Immunization Admin Intranasal / Oral Each Additional Vaccine Immunization Admin Intranasal / Oral Each Additional Vaccine 06510 ABISAI JACKSON [facility] Vaccines Adenovirus Type 4 Live, For Oral Use Vaccines Adenovirus Type 4 Live, For Oral Use 67105 ABISAI JACKSON A single vaccine dose adminstered orally. [facility] Vaccines Adenovirus Type 7 Live, For Oral Use Vaccines Adenovirus Type 7 Live, For Oral Use 29147 ABISAI JACKSON A single vaccine dose adminstered orally. [facility] Visual Function Screening Visual Function Screening [address] [employer] Educational [facility] -Supervised Group Educational Services 45461 JONATHON GONZALEZ [facility] Audiometry Group Testing Audiometry Group Testing 16829 JONATHON GONZALEZ [facility] Ear mold/insert, not disposable, any type JOANTHON GONZALEZ [facility] No data available for this section Ambulato ry Pharmacy Social History Combined list of available smoking, tobacco, and other social history from [facility] facilities. Social History Type Response Date Comment Sour e This section is an empty soc ial history section. [facility] Sexual Orientation Ambula tory Pharmacy Gender identity Ambulator y Pharmacy Sex Representation Male (finding) Un known Organization Assessment and Plan Combined list of future [...] at [facility] [place] Functional [place] Measurement (FIM) Scale: 1 = Total Assistance (Subject = 0% +), 2 = Maximal Assistance (Subject = 25% +), 3 = Moderate Assistance (Subject = 50% +), 4 = Minimal Assistance (Subject = 75% +), 5 = Supervision, 6 = Modified [place] (Device), 7 = Complete [place] (Timely, Safely). Assessment Date/Time Source Assessment Type Assessment Skill Assessment Score Assessment Details No data available for this section
[2024-11-16 16:39] VITALS: BP 139/91; PULSE 74; RESP 16; TEMP 36.5; O2SAT 100
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
[2024-11-16 17:02] VITALS: RESP 16
[2024-11-16 17:18] LABS: HIV 1/2 Ab P24 Ag Result Negative (Negative)
[2024-11-16 17:57] LABS: Hepatitis B Surface Anti Res Positive
== END 2024-11-16 17:03 | disposition home or self-care (01) ==
PROVIDERS: Emergency Medicine; Emergency Provider Physician Assistant; PCP Nurse Practitioner Family
DX: Z77.21 Contact with and (suspected) exposure to potentially hazardous body fluids (principal); F17.200 Nicotine dependence, unspecified, uncomplicated
CPT/HCPCS: 36415; 86703; 86706; 86803; 99283; G0432